=== PATIENT | male | born 1970 | race American Indian/Alaskan Native ===

== ENCOUNTER → 2018-02-07 | Outpatient (CLI) | payer OTHER ==
[~2018-02-07] MED LIST: ABAT250V; ALBU90OI6 INH; AMIL5 PO; Aldactone25 MG PO; Aldactone50 MG PO; B-1100 MG PO; BIOTIN5 MG PO; BUPR150ER PO; CHLO25 PO; CHOL10002; CHOL10002 PO; CLOB.05TC TOP; CLOB.05TO; CLOB.05TO TOP; Cyclobenzaprine5 MG PO; Daily Vitamin1 EAC8 PO; Enulose 2020 G/30 ML PO; FOLI1; FOLI1 PO; GABA100 PO; Generlac10 GM/15 M PO; LACT10SY; LISI5 PO; LORA.5 PO; Lisinopril2.5 MG PO; MAGCHL64ER PO; MAGOXI400 PO; Magnesium Oxid500 MG PO; Multiple Vitam1 EAC1 PO; NYST100TC; PANT40 PO; POTCHL20ER PO; PROP10; RIFA550T2 PO; THIA100; TRAZ50; VENL37.5 PO; VENL37.5ER PO; VITAMIN D32000 UNIT PO
[2018-02-07 16:54] LABS: Microalbumin, Urine Quant. 5.57 mg/L (0.000-20.000)
[2018-02-07 17:27] LABS: Protein, Urine Quantitative 6.6 mg/dL (0.0-11.9)
== END | disposition home or self-care (01) ==
LOC: OLS 11:00
PROVIDERS: Internal Medicine Nephrology
DX: N18.2 Chronic kidney disease, stage 2 (mild) (principal); D63.1 Anemia in chronic kidney disease; N25.81 Secondary hyperparathyroidism of renal origin; E55.9 Vitamin D deficiency, unspecified; E78.00 Pure hypercholesterolemia, unspecified; R76.9 Abnormal immunological finding in serum, unspecified; R94.5 Abnormal results of liver function studies; R94.6 Abnormal results of thyroid function studies; R03.1 Nonspecific low blood-pressure reading; E86.9 Volume depletion, unspecified
CPT/HCPCS: 81050; 82043; 84156

== ENCOUNTER 2018-07-25 14:11 | Emergency (ER) | payer OTHER ==
[~2018-07-25] VITALS: Ht 177.8 cm; Wt 80.0 kg
[2018-07-25] MEDS ORDERED: CHLO25 PO (14:53)
== END 2018-07-25 15:00 | disposition home or self-care (01) ==
LOC: ER 14:11
DX: F10.239 Alcohol dependence with withdrawal, unspecified (principal); I10 Essential (primary) hypertension; F32.9 Major depressive disorder, single episode, unspecified; F17.200 Nicotine dependence, unspecified, uncomplicated; Z79.899 Other long term (current) drug therapy; Z88.0 Allergy status to penicillin; Z88.1 Allergy status to other antibiotic agents
CPT/HCPCS: 99284

== ENCOUNTER 2019-01-01 21:17 | Emergency (ER) | payer OTHER ==
[~2019-01-01] VITALS: Ht 177.8 cm; Wt 84.8 kg
== END 2019-01-01 21:45 | disposition left against medical advice (07) ==
LOC: ER 21:17
DX: Z53.21 Procedure and treatment not carried out due to patient leaving prior to being seen by health care provider (principal)

== ENCOUNTER 2019-01-07 17:21 | Emergency (ER) | payer OTHER ==
[~2019-01-07] VITALS: Ht 177.8 cm; Wt 81.7 kg
[2019-01-07 17:59] LABS: BASOPHILS ABSOLUTE AUTO 0.02 K/mm3 (0.00-0.23); BASOPHILS PERCENT AUTO 0 % (0-2); EOSINOPHILS ABSOLUTE AUTO 0.44 K/mm3 (0.00-0.68); EOSINOPHILS PERCENT AUTO 7 % (0-6); Hematocrit 37.5 % (37.0-53.0); Hemoglobin 12.9 g/dL (13.5-17.5); IMMATURE GRAN ABSOLUTE AUTO 0.01 K/mm3 (0.00-0.10); IMMATURE GRAN PERCENT AUTO 0 % (0-1); LYMPHOCYTES ABSOLUTE AUTO 0.86 K/mm3 (0.84-5.20); LYMPHOCYTES PERCENT AUTO 14 % (21-46); MONOCYTES ABSOLUTE AUTO 0.49 K/mm3 (0.16-1.47); MONOCYTES PERCENT AUTO 8 % (4-13); Mean Corpuscular HGB 33.2 pg (26.0-34.0); Mean Corpuscular HGB Conc 34.4 g/dL (31.5-36.5); Mean Corpuscular Volume 96 fL (80-100); Mean Platelet Volume 10.8 fL (9.1-12.4); NEUTROPHILS ABSOLUTE AUTO 4.49 K/mm3 (1.96-9.15); NEUTROPHILS PERCENT AUTO 71 % (41-73); Platelet Count 156 K/mm3 (150-400); RDW Coefficient Variation 14.5 % (11.7-14.2); RDW Standard Deviation 49.4 fL (35.1-46.3); Red Blood Cell Count 3.89 M/mm3 (4.30-5.90); White Blood Cell Count 6.31 K/mm3 (4.00-11.30)
[2019-01-07 18:14] LABS: Alanine Aminotransfer (ALT/SGP 61 U/L (12-78); Albumin, Blood 2.7 g/dL (3.4-5.0); Albumin/Globulin Ratio 0.7 (0.8-1.8); Alk Phos 120 U/L (50-136); Anion Gap 8 mmol/L (6-16); Aspartate Aminotrans (AST/SGOT 100 U/L (12-37); Bilirubin, Total 2.1 mg/dL (0.1-1.0); Blood Urea Nitrogen 18 mg/dL (8-24); CO2, Blood 25 mmol/L (21-32); Calcium, Blood 7.7 mg/dL (8.5-10.1); Chloride, Blood 108 mmol/L (98-108); Globulin, Blood 3.7 g/dL (2.2-4.0); Glomerular Filtration Rate >60 (60-); Glucose, Blood 170 mg/dL (70-99); Potassium, Blood 3.9 mmol/L (3.5-5.5); Sodium, Blood 141 mmol/L (136-145); Total Protein, Blood 6.4 g/dL (6.4-8.2)
[2019-01-07] MEDS ORDERED: Cleocin HCl300 MG PO (18:48)
== END 2019-01-07 20:26 | disposition home or self-care (01) ==
LOC: ER 17:21
PROVIDERS: Physician Assistant
DX: S81.851A Open bite, right lower leg, initial encounter (principal); L08.9 Local infection of the skin and subcutaneous tissue, unspecified; W54.0XXA Bitten by dog, initial encounter; Z88.0 Allergy status to penicillin; Z88.8 Allergy status to other drugs, medicaments and biological substances; I10 Essential (primary) hypertension; F17.210 Nicotine dependence, cigarettes, uncomplicated
CPT/HCPCS: 36415; 80053; 85025; 87070; 87075; 87076; 87077; 87147; 87185; 87186; 87205; 90471; 90714; 96365; 99283-25

== ENCOUNTER 2019-03-27 15:23 | Emergency (ER) | payer OTHER ==
[~2019-03-27] VITALS: Ht 177.8 cm; Wt 81.7 kg
[~2019-03-27 15:23] MED LIST changes: +Cleocin HCl300 MG PO
[2019-03-27] MEDS ORDERED: INCARCERATION (15:40)
== END 2019-03-27 15:46 ==
LOC: ER 15:23
DX: F10.229 Alcohol dependence with intoxication, unspecified (principal); F10.239 Alcohol dependence with withdrawal, unspecified
CPT/HCPCS: 99283

== ENCOUNTER 2019-03-27 23:54 | Emergency (ER) | payer OTHER ==
[~2019-03-27] VITALS: Ht 175.3 cm; Wt 83.5 kg
[~2019-03-27 23:54] MED LIST changes: +INCARCERATION
== END 2019-03-28 00:08 | disposition home or self-care (01) ==
LOC: ER 23:54
DX: F10.129 Alcohol abuse with intoxication, unspecified (principal); Z88.0 Allergy status to penicillin; Z88.8 Allergy status to other drugs, medicaments and biological substances; I10 Essential (primary) hypertension; F17.210 Nicotine dependence, cigarettes, uncomplicated
CPT/HCPCS: 99283

== ENCOUNTER 2019-04-29 10:17 | Emergency (ER) | payer OTHER ==
[~2019-04-29] VITALS: Ht 175.3 cm; Wt 83.9 kg
== END 2019-04-29 10:27 | disposition home or self-care (01) ==
LOC: ER 10:17
DX: F10.10 Alcohol abuse, uncomplicated (principal); Z88.0 Allergy status to penicillin; Z88.8 Allergy status to other drugs, medicaments and biological substances; I10 Essential (primary) hypertension; F32.9 Major depressive disorder, single episode, unspecified; F17.210 Nicotine dependence, cigarettes, uncomplicated
CPT/HCPCS: 99283

== ENCOUNTER 2019-07-05 06:45 | Emergency (ER) | payer OTHER ==
[~2019-07-05] VITALS: Ht 177.8 cm; Wt 88.5 kg
[2019-07-05] MEDS ORDERED: LISI5 (07:09)
[2019-07-05] MEDS ORDERED: Roxicodone5 MG PO (08:34)
== END 2019-07-05 09:00 | disposition home or self-care (01) ==
LOC: ER 06:45
DX: S20.211A Contusion of right front wall of thorax, initial encounter (principal); V89.9XXA Person injured in unspecified vehicle accident, initial encounter; Z88.0 Allergy status to penicillin; Z88.1 Allergy status to other antibiotic agents; Z79.899 Other long term (current) drug therapy; I10 Essential (primary) hypertension; F32.9 Major depressive disorder, single episode, unspecified; F17.210 Nicotine dependence, cigarettes, uncomplicated
CPT/HCPCS: 71046; 99283-25

== ENCOUNTER 2019-08-06 01:08 | Emergency (ER) | payer OTHER ==
[~2019-08-06] VITALS: Ht 177.8 cm; Wt 86.6 kg
[~2019-08-06 01:08] MED LIST changes: +LISI5; +Roxicodone5 MG PO
[2019-08-06] MEDS ORDERED: GABA300 PO (01:18)
[2019-08-06] MEDS ORDERED: FOLI400 PO (01:19)
[2019-08-06] MEDS ORDERED: B-1100 MG PO (01:19)
[2019-08-06] MEDS ORDERED: MELATONIN5 M1 PO (01:20)
[2019-08-06] MEDS ORDERED: Daily Multiple1 EACH PO (01:20)
[2019-08-06] MEDS ORDERED: LORA1 PO (01:21)
[2019-08-06] MEDS ORDERED: HYDPAM50 PO (01:22)
[2019-08-06] MEDS ORDERED: CLON.1 PO (01:23)
[2019-08-06] MEDS ORDERED: METOPROLOL SUCC25 MG PO (01:23)
[2019-08-06] MEDS ORDERED: PROM25 PO (01:24)
[2019-08-06] MEDS ORDERED: TRAZ50 PO (01:24)
[2019-08-06] MEDS ORDERED: LISINOPRIL (06:00)
== END 2019-08-06 01:44 | disposition left against medical advice (07) ==
LOC: ER 01:08
DX: Z53.21 Procedure and treatment not carried out due to patient leaving prior to being seen by health care provider (principal)

== ENCOUNTER 2019-08-06 05:48 | Inpatient (IN) | payer OTHER ==
[~2019-08-06] VITALS: Ht 175.3 cm; Wt 88.2 kg
[~2019-08-06 05:48] MED LIST changes: +CLON.1 PO; +Daily Multiple1 EACH PO; +FOLI400 PO; +GABA300 PO; +HYDPAM50 PO; +LORA1 PO; +MELATONIN5 M1 PO; +METOPROLOL SUCC25 MG PO; +PROM25 PO; +TRAZ50 PO
[2019-08-06] MEDS ORDERED: LISINOPRIL (06:00)
[2019-08-06 07:48] LABS: BASOPHILS ABSOLUTE AUTO 0.02 K/mm3 (0.00-0.23); BASOPHILS PERCENT AUTO 0 % (0-2); EOSINOPHILS ABSOLUTE AUTO 0.01 K/mm3 (0.00-0.68); EOSINOPHILS PERCENT AUTO 0 % (0-6); Hematocrit 37.7 % (37.0-53.0); Hemoglobin 12.8 g/dL (13.5-17.5); IMMATURE GRAN ABSOLUTE AUTO 0.04 K/mm3 (0.00-0.10); IMMATURE GRAN PERCENT AUTO 0 % (0-1); LYMPHOCYTES ABSOLUTE AUTO 0.19 K/mm3 (0.84-5.20); LYMPHOCYTES PERCENT AUTO 2 % (21-46); MONOCYTES ABSOLUTE AUTO 0.56 K/mm3 (0.16-1.47); MONOCYTES PERCENT AUTO 6 % (4-13); Mean Corpuscular HGB 32.7 pg (26.0-34.0); Mean Corpuscular Volume 96 fL (80-100); Mean Platelet Volume 11.7 fL (9.1-12.4); NEUTROPHILS PERCENT AUTO 91 % (41-73); Platelet Count 67 K/mm3 (150-400); RDW Coefficient Variation 15.8 % (11.7-14.2); RDW Standard Deviation 55.8 fL (35.1-46.3); Red Blood Cell Count 3.92 M/mm3 (4.30-5.90); White Blood Cell Count 9.42 K/mm3 (4.00-11.30)
[2019-08-06 08:01] LABS: Alanine Aminotransfer (ALT/SGP 70 U/L (12-78); Albumin, Blood 3.6 g/dL (3.4-5.0); Albumin/Globulin Ratio 0.8 (0.8-1.8); Alk Phos 196 U/L (50-136); Anion Gap 14 mmol/L (6-16); Aspartate Aminotrans (AST/SGOT 176 U/L (12-37); Blood Urea Nitrogen 24 mg/dL (8-24); CO2, Blood 20 mmol/L (21-32); Calcium, Blood 9.6 mg/dL (8.5-10.1); Chloride, Blood 106 mmol/L (98-108); Creatinine, Blood 1.41 mg/dL (0.60-1.20); Ethanol (Alcohol), Blood, Med <3 mg/dL; Globulin, Blood 4.3 g/dL (2.2-4.0); Glomerular Filtration Rate 56 (60-); Glucose, Blood 86 mg/dL (70-99); Sodium, Blood 140 mmol/L (136-145); Total Protein, Blood 7.9 g/dL (6.4-8.2); Troponin I 0.291 ng/mL (0.000-0.040)
[2019-08-06 08:48] LABS: Creatine Kinase MB 46.1 ng/mL (0.0-3.6)
[2019-08-06 09:09] LABS: Creatine Kinase MB Index 1.2 (0.0-4.0)
[2019-08-06 09:34] LABS: Source, Urine Clean Catch
[2019-08-06 09:43] LABS: Blood, Urine 3+ (Neg); Glucose Qualitative, Urine Neg (Neg); Ketones, Urine 3+ (Neg); Leukocyte Esterase, Urine 1+ (Neg); Nitrite, Urine Neg (Neg); Protein, Urine 3+ (Neg); Specific Gravity, Urine 1.015 (1.003-1.022); Urobilinogen, Urine 2+ (Normal)
[2019-08-06 09:54] LABS: U Amphetamine Screen Not Detected; U Barbituate Screen Not Detected; U Benzodiazapine Screen DETECTED; U Buprenorphine Screen Not Detected; U Cannabinoids Screen Not Detected; U Cocaine Screen Not Detected; U Methadone Screen Not Detected; U Methamphetamine Screen Not Detected; U Opiates Screen Not Detected; U Oxycodone Screen Not Detected; U Phencyclidine Screen Not Detected; U Propoxyphene Screen Not Detected
[2019-08-06 09:57] LABS: Appearance, Urine Cloudy (Clear); Bilirubin, Urine 2+ (Neg); Color, Urine Yellow (P-Yellow)
[2019-08-06 10:02] LABS: Red Blood Cells, Urine 0-2 /hpf (0-2); Squamous Epithelial Cells Few /hpf (Few)
[2019-08-06 10:03] LABS: Bacteria Few /hpf; Hyaline Casts 0-2 /lpf (0-2)
[2019-08-06 10:04] LABS: Granular Casts Rare /lpf (0)
--- NOTE | 2019-08-06 15:05 | NUR ---
UPDATE PT ATTEMPTING TO GET OUT OF BED. CIWA INCREASED. ATTEMPTED TO GIVE ATIVAN IV. IV NOT PATENT AND UNABLE TO PLACE A NEW IV. DR. VÁSQUEZ CALLED. ORDERS FOR 5MG ATIVAN TO BE GIVEN IM. JUAN GUTIERREZ IN ROOM AND ABLE TO PLACE IV. PT GIVEN 4MG IV ATIVAN. PT STILL RESTLESS AND HAVING VISUAL HALLUCINATIONS. WILL CONTINUE TO MONITOR CLOSELY AND TREAT WITHDRAWALS.
--- NOTE | 2019-08-06 15:54 | NUR ---
UPDATE PT CONTINUES TO BE AGITATED. PT THROWING TELEMETRY. PT YELLING AT STAFF AND UNABLE TO BE REDIRECTED. DR. VÁSQUEZ CALLED AND ORDERS FOR TRANSFER. PT TAKEN TO ICU BY BED.
--- NOTE | 2019-08-06 16:08 | NUR ---
PT ARRIVAL: PT TNX'D FROM PCU. PT CURRENTLY YELLING OUT FOR HELP AND FOR STAFF TO CALL THE POLICE. PT RESISTING CARE AND PULLING WIRES OFF. PLACED IN RADHA VEST AND BILATERAL WRIST RESTRAINTS. UNABLE TO REDIRECT PT. PT ORIENTED TO ROOM, HOWEVER, DOES NOT RETAIN INFORMATION. PT ORIENTED TO SELF ONLY AT THIS TIME. PRECEDEX STARTED TO MINIMIZE ETOH DT'S.
[2019-08-06 16:49] LABS: Troponin I 0.288 ng/mL (0.000-0.040)
[2019-08-06 16:57] LABS: Creatine Kinase MB Index 0.7 (0.0-4.0)
--- NOTE | 2019-08-06 18:23 | NUR ---
ASSUMED CARE / SHIFT SUMMARY: REPORT RECEIVED FROM DARIA Maya RN IN PCU. PT TX TO ICU-05 AT APPROX 1515. ON ARRIVAL TO UNIT, PT IS RESISTING CARE. RADHA VEST & BILAT SOFT WRIST RESTRAINTS PLACED SHORTLY AFTER ARRIVAL TO UNIT, BILAT SOFT ANKLE RESTRAINTS PLACED MULTIPLE HOURS LATER AFTER MEDS PER EMAR FAILED TO HELP W/ ETOH W/D SYMPTOMS & PT BECOMING INCREASINGLY MORE AGITATED. ORDERS PLACED ACCORDINGLY. CALL TO DR VÁSQUEZ TO NOTIFY HIM OF THIS, OKAY TO INCREASE PRECEDEX DRIP TO 1.4 MCG/KG/HR & ORDERS FOR PHENOBARBITAL PLACED. PT IS NOW RESTING QUIETLY AFTER MEDS PER EMAR. LS ARE CLEAR T/O, PT ON RA W/ O2 SATS > 92%. MONITOR SHOWS NSR W/ HR 70s. BP STABLE. PT VOIDS USING URINAL, ATTENDS IN PLACE PER PT REQUEST TO WEAR "UNDERWEAR." BT x4, PT DENIES NAUSEA WHEN AWAKE. SKIN OVERALL IN POOR CONDITION, PT APPEARS TO HAVE PSORIASIS W/ NUMEROUS OPEN AREAS TO SKIN SURFACE. SCATTERED BRUISING ALSO NOTED TO BLE. WILL CONTINUE TO MONITOR & REPORT OFF TO ONCOMING RN.
--- NOTE | 2019-08-06 20:52 | NUR ---
ASSUMED CARE OF PT, REPORT RCV'D FROM MATT CABEZAS. PT ASLEEP IN SUPINE POSITION. BILATERAL UPPER/LOWER SOFT RESTRAINTS AND RADHA IN PLACE. BED IN LOW LOCKED POSITION, SIDE RAILS UP AND DOOR/CURTAIN OPEN. PT RESPONDS TO VERBAL STIMULI BY MUMBLING AND QUICKLY FALLS BACK TO SLEEP. PRECEDEX GTT TURNED DOWN FROM 1.4 MCG/KG/HR TO 0.4 MCG/KG/HR INFUSING INTO RAC. BANANA BAG @50 ML/HR AND NS @ 125 ML/HR INFUSING INTO AALIYAH PICC. ABRASIONS AND ECCHYMOSIS SCATTERED T/O BODY, SEE PICTURES IN CHART.
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
[2019-08-07 00:34] LABS: Creatine Kinase MB 26.2 ng/mL (0.0-3.6); Troponin I 0.186 ng/mL (0.000-0.040)
[2019-08-07 00:44] LABS: Creatine Kinase MB Index 0.6 (0.0-4.0)
--- NOTE | 2019-08-07 04:11 | NUR ---
PT AWAKE, MUMBLING AND CURSING. ATTENDS CHANGED D/T INCONTINENT VOID. PT DIAPHORETIC AND SHAKING. PT ALERT TO SELF, LOCATION, SITUATION AND ABLE TO RECALL THAT HE "FELL AND HIT HIS HEAD" BUT QUICKLY BECAME DISORIENTED AND AGITATED. CIWA 39, PT MEDICATED APPROPRIATELY
[2019-08-07 04:14] LABS: BASOPHILS ABSOLUTE AUTO 0.02 K/mm3 (0.00-0.23); BASOPHILS PERCENT AUTO 0 % (0-2); EOSINOPHILS PERCENT AUTO 3 % (0-6); Hemoglobin 11.8 g/dL (13.5-17.5); IMMATURE GRAN ABSOLUTE AUTO 0.03 K/mm3 (0.00-0.10); IMMATURE GRAN PERCENT AUTO 1 % (0-1); LYMPHOCYTES ABSOLUTE AUTO 0.66 K/mm3 (0.84-5.20); LYMPHOCYTES PERCENT AUTO 11 % (21-46); MONOCYTES ABSOLUTE AUTO 0.53 K/mm3 (0.16-1.47); MONOCYTES PERCENT AUTO 9 % (4-13); Mean Corpuscular HGB 33.1 pg (26.0-34.0); Mean Corpuscular HGB Conc 33.7 g/dL (31.5-36.5); Mean Corpuscular Volume 98 fL (80-100); Mean Platelet Volume 11.6 fL (9.1-12.4); NEUTROPHILS ABSOLUTE AUTO 4.69 K/mm3 (1.96-9.15); NEUTROPHILS PERCENT AUTO 77 % (41-73); Platelet Count 73 K/mm3 (150-400); RDW Coefficient Variation 15.5 % (11.7-14.2); RDW Standard Deviation 55.3 fL (35.1-46.3); Red Blood Cell Count 3.57 M/mm3 (4.30-5.90); White Blood Cell Count 6.13 K/mm3 (4.00-11.30)
[2019-08-07 04:33] LABS: Alanine Aminotransfer (ALT/SGP 65 U/L (12-78); Albumin, Blood 2.8 g/dL (3.4-5.0); Albumin/Globulin Ratio 0.8 (0.8-1.8); Alk Phos 156 U/L (50-136); Anion Gap 6 mmol/L (6-16); Aspartate Aminotrans (AST/SGOT 184 U/L (12-37); Blood Urea Nitrogen 21 mg/dL (8-24); Bun/Creatinine Ratio 23.4 (12.0-20.0); CO2, Blood 26 mmol/L (21-32); Chloride, Blood 110 mmol/L (98-108); Globulin, Blood 3.6 g/dL (2.2-4.0); Glomerular Filtration Rate >60 (60-); Glucose, Blood 112 mg/dL (70-99); Magnesium, Blood 1.7 mg/dL (1.6-2.4); Phosphorus, Blood 3.5 mg/dL (2.5-4.9); Potassium, Blood 3.5 mmol/L (3.5-5.5); Sodium, Blood 142 mmol/L (136-145); Total Protein, Blood 6.4 g/dL (6.4-8.2)
--- NOTE | 2019-08-07 05:53 | NUR ---
SHIFT SUMMARY PT REMAINS ON PRECEDEX 0.4 MCG/KG/HR. NO VISIBLE SIGNS (TREMORS, DIAPHORESIS) OF ETOH W/D FOLLOWING 4 MG DOSE OF ATIVAN (SEE PREVIOUS NOTE). VSS T/O SHIFT. SEE PREVIOUS NOTES FROM THIS SHIFT. WILL REPORT TO DAYSHIFT NURSE.
--- NOTE | 2019-08-07 08:00 | NUR ---
ASSUMED CARE / DR ISTRATE: REPORT RECEIVED FROM LIZ Varela RN. ASSUMED CARE OF THIS PT AT APPROX 0700. ON ASSESSMENT, THE PT IS RESTING QUIETLY. BILAT SOFT WRIST/ ANKLE RESTRAINTS & RADHA VEST REMAIN ON AT THIS TIME. RESP E/U, PT ON RA W/ O2 SATS > 92%. MONITOR SHOWS SR W/ HR 60s, BP STABLE. PER REPORT, PT VOIDS USING URINAL WHEN AWAKE, OTHERWISE INCONTINENT W/ ATTENDS IN PLACE. SKIN OVERALL IN POOR CONDITION, MANY ABRASIONS & SCATTERED BRUISING T/O. PROVIDER AT BEDSIDE TO SEE PT. NO NEW CHANGES AT THIS TIME. HE STS TO CALL IF MORE ORDERS BECOME NECESSARY TO MANAGE ETOH W/D. WILL CONTINUE TO MONITOR & UPDATE NEEDED.
[2019-08-07 10:12] LABS: Creatine Kinase MB 19.8 ng/mL (0.0-3.6); Troponin I 0.06 ng/mL (0.000-0.040)
[2019-08-07 10:27] LABS: Creatine Kinase MB Index 0.8 (0.0-4.0)
--- NOTE | 2019-08-07 16:19 | NUR ---
Spiritual Care intial note: Lengthy visit with Eddie's mom at bedside. Eddie slept throughout visit. Mom tells me that pt's father has advanced dementia. She can no longer care for Eddie at home. She spoke at length about pt's alcoholism. He does not beleive he has a problem. Mom believes his drinking has damaged his cognition. He is often unreasonable. He recently purchased a gun. She is sometimes afraid of her son. I provided theraputic listening and gentle drug abuse counselor. Encouraged self-care and utilizing community resources. Eddie does have income from [employer]. Mom responded well to theraputic listening and prayer. Eddie is not lucid enough for conversation today. I will attempt drug abuse counselor with him in coming days.
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
--- NOTE | 2019-08-08 02:00 | NUR ---
RECEIVED HAND OFF FROM MATT HILL USING SBAR. LYING IN LOW FOWLERS WITH EYES CLOSED. NURSING INTRODUCED AND PT REORIENTED TO ROOM, CALL SYSTEM, AND POC, TO MUMBLE ANSWERS TO ALL QUESTIONS. BELIGERANT WHEN NURSING ASKED HIM TO REPEAT HIS ANSWERS. THREATENS TO KICK AND HIT NURSING WHEN SATURATED ATTENDS CHANGED AND REPOSITIONED. REFUSED OFFER FOR FLUIDS AND NUTRITION. DENIES PAIN, DISCOMFORT, OR FURTHER NEEDS AT THIS TIME. SAFETY MEASURES IN PLACE. WILL CONTINUE TO MONITOR.
[2019-08-08 03:55] LABS: BASOPHILS ABSOLUTE AUTO 0.02 K/mm3 (0.00-0.23); BASOPHILS PERCENT AUTO 0 % (0-2); EOSINOPHILS ABSOLUTE AUTO 0.16 K/mm3 (0.00-0.68); EOSINOPHILS PERCENT AUTO 3 % (0-6); Hematocrit 32.2 % (37.0-53.0); IMMATURE GRAN ABSOLUTE AUTO 0.01 K/mm3 (0.00-0.10); IMMATURE GRAN PERCENT AUTO 0 % (0-1); LYMPHOCYTES ABSOLUTE AUTO 0.52 K/mm3 (0.84-5.20); LYMPHOCYTES PERCENT AUTO 10 % (21-46); MONOCYTES ABSOLUTE AUTO 0.55 K/mm3 (0.16-1.47); MONOCYTES PERCENT AUTO 11 % (4-13); Mean Corpuscular HGB 32.7 pg (26.0-34.0); Mean Corpuscular HGB Conc 34.2 g/dL (31.5-36.5); Mean Corpuscular Volume 96 fL (80-100); Mean Platelet Volume 11.3 fL (9.1-12.4); NEUTROPHILS ABSOLUTE AUTO 3.76 K/mm3 (1.96-9.15); NEUTROPHILS PERCENT AUTO 75 % (41-73); Platelet Count 75 K/mm3 (150-400); RDW Coefficient Variation 15.5 % (11.7-14.2); RDW Standard Deviation 54.8 fL (35.1-46.3); Red Blood Cell Count 3.36 M/mm3 (4.30-5.90); White Blood Cell Count 5.02 K/mm3 (4.00-11.30)
[2019-08-08 04:07] LABS: Magnesium, Blood 1.6 mg/dL (1.6-2.4)
[2019-08-08 04:21] LABS: Alanine Aminotransfer (ALT/SGP 69 U/L (12-78); Albumin, Blood 2.3 g/dL (3.4-5.0); Albumin/Globulin Ratio 0.7 (0.8-1.8); Alk Phos 145 U/L (50-136); Anion Gap 8 mmol/L (6-16); Aspartate Aminotrans (AST/SGOT 154 U/L (12-37); Bilirubin, Total 1.8 mg/dL (0.1-1.0); Blood Urea Nitrogen 13 mg/dL (8-24); Bun/Creatinine Ratio 15.5 (12.0-20.0); CO2, Blood 22 mmol/L (21-32); Calcium, Blood 7.3 mg/dL (8.5-10.1); Chloride, Blood 112 mmol/L (98-108); Creatinine, Blood 0.84 mg/dL (0.60-1.20); Globulin, Blood 3.5 g/dL (2.2-4.0); Glomerular Filtration Rate >60 (60-); Glucose, Blood 107 mg/dL (70-99); Potassium, Blood 3.2 mmol/L (3.5-5.5); Sodium, Blood 142 mmol/L (136-145); Total Protein, Blood 5.8 g/dL (6.4-8.2); Troponin I 0.025 ng/mL (0.000-0.040)
[2019-08-08 04:22] LABS: CPK Creatine Kinase 1218 U/L (39-308)
[2019-08-08 04:36] LABS: Creatine Kinase MB 7.7 ng/mL (0.0-3.6); Creatine Kinase MB Index 0.6 (0.0-4.0)
--- NOTE | 2019-08-08 07:04 | NUR ---
PT CALLED OUT, "CUT ME LOOSE!" ASKING TO BE RELEASED FROM HIS RESTRAINTS. NURSING ENTERED ROOM AND SPOKE TO PT. HE WAS ABLE TO ANSWER WHAT THE MONTH, SELF, PRESIDENT, AND SITUATION WERE. STATES THAT HE IS WILLING TO BE COOPERATIVE WITH CARE AND WANTS TO BE ABLE TO AMBULATE AND EVENTUALLY WALK OUT OF THE HOSPITAL. VOICES THAT HE HAS A FEAR THAT HE WILL LOOSE THE ABLITY TO AMBULATE. NURSING REASSURD HIM THAT HE WILL BE ABLE TO WALK OUT IN THE FUTURE WHEN HE HAS RECOVERED. ORAL CARE PERFORMED, PT GIVEN CHOCOLATE MILK AFTER USING THE URINAL. 200ML CONCENTRATED GIANA URINE EMPITED. BILATERAL SOFT WRIST RESTRAINTS REMOVED AND PT ASSITED IN ROM. VOICES APPRECIATION. PT INFORMED THAT SHIFT CHANGE WAS GOING TO OCCUR AND HAND OFF WOULD BE PERFORMED. SAFETY MEASURES IN PLACE. HAND OFF GIVEN TO MATT MARTINEZ USING SBAR.
--- NOTE | 2019-08-08 07:39 | NUR ---
Recieved report from Shanta RN. Patient is lying supine in bed awakens to verbal stimuli and is able to state place , person, year, and situation.. He is on RA and sats 98%.Patient is arumentitive and blames us for his situation r/t having him in restraints. He has 20ga IV RFA , dressing intact and site WNL's and is infusing Precedex at 0.4 mcg/kg/hr. He also has PowerGlide AALIYAH and dressing intact and site WNL's and is infusing NS at 125ml/hr. He uses urinal if you respond quick enough to him calling out. He is in reyes vest and wrist restraints were removed during Noc shift. HR 70 and NSR.
--- NOTE | 2019-08-08 08:00 | NUR ---
Patient arrived via gurney from Er to ICU 8 and transfered self to ICU bed. He wanted food and drinks as soon as he arrived. Bharath from Dialysis was on his way to hook uo. I cave him three types of juices in three cup as he requested and he shortly fell asleep. He has perma Cath right upper chest. Hooked up to monitor and he was hypertensive systolic 190's. He is on Ra and sats upper 90%'s. He looked fluid overloaded to LE's bilaterally and has 2-3 + edema. Call light within reach.
--- NOTE | 2019-08-08 09:00 | NUR ---
Dialysis in room and running patient. Breakfast came and he was sleeping and will awit to see if he is hungry.
--- NOTE | 2019-08-08 10:32 | NUR ---
Patient worked with PT and OT and was up in chair for short period and tolereated well for first time being out of bed. He still cusses when communicating and needs to be re-direct to appropriate speech. Gets frustrated easily. Moved back to bed with one person transfer very weak and shaky, but tolerated well. Oral care done. He is back in bed now and sleeping VSS. Placed precedex on hold.
--- NOTE | 2019-08-08 12:13 | NUR ---
Assisted patient with urinal, about 250ml's of dark samantha urine. He still denies any apetite. VSS, Precedex remains off. [place] loosed and watching patient while sleeping.
--- NOTE | 2019-08-08 13:24 | NUR ---
PATIENT HAD BED CHANGE AND BATH. PLACED IN WHEELCHAIR AND TOOK FOR WALK. HE IS MORE APPROPRIATE, PRECEDX REMAINS OFF. HE IS NOW PCU STAUS AND BACK IN BED RESTING. VSS. SEE JOSE C
--- NOTE | 2019-08-08 13:36 | NUR ---
PATIENT HAS BEEN VERY SHAKY USING URINAL AND SPILLING OR MISSING AND PLAVED SMALL CONDOM CATH AND COLLECTION BAG.
--- NOTE | 2019-08-08 16:04 | NUR ---
PT CAME BACK AND WORKED WITH PATIENT AND DID VERY WELL. RE-APPIED CONDOM CATH AND IS WORKING WELL. HE HAS BEEN VERY APPROPRIATE WITH CALLING AND COMMUNICATIONING HIS NEEDS. VSS
--- NOTE | 2019-08-08 16:28 | NUR ---
Telephone report received from Cristofer Butcher.
--- NOTE | 2019-08-08 17:00 | NUR ---
RECEIVED PT TO PCU 10.
--- NOTE | 2019-08-08 17:01 | NUR ---
Gave report to Dulce GUTIERREZ. He was taken over in wheelchair with all personal belongings. Told Dulce to start NS at 125ml/hr as bag was empty.He went over on RA and sats in the mid to high 90%'s.
--- NOTE | 2019-08-08 17:42 | NUR ---
Received the pt from ICU, in to PCU 10. He was assisted from the wheelchair to the bed to sit down. He is able to use the overhead trapeze to reposition himself in bed. Tremors noted at rest, but pt denies headache, nausea, vomiting, anxiety, visual/auditory hallucinations. No agitation or anxiety noted. At this time, he is sitting up in bed, eating dinner with a good appetite. STates that he does occasionally have pain on the left side of his chest, worse with inspiration. States that it is from a cracked rib from fall which occurred just before his admission.
--- NOTE | 2019-08-08 21:59 | NUR ---
PCU NIGHTSHIFT ASSUMED CARE OF PT APPROX. 1900. PT A&OX4 AND ABLE TO ANSWER ALL QUESTIONS APPROPRIATELY. ASSESSMENT COMPLETED. PT VITAL SIGNS STABLE. TREMORS NOTED ON ALL EXTREMITIES. PT DENIES N/V. SCATTERED BRUISING NOTED T/O EXTREMITIES AND SCAB PRESENT IN A FEW PLACES. SKIN RED AND FLAKEY NOTED ON FACE. PT REPORTS THIS IS CHRONIC. PT ABLE TO HOLD CONVERSATION WELL. SHIFT PROGRESSED PT BEGAN TO REPORTS SEEING THINGS INTERMITTENLTY, TREMORS WORSENED AND PT REPORTED A HEADACHE. MEDICATIONS GIVEN PER EMAR. CONDOM CATHETER REMAINS IN PLACE. BED IN LOW POSITION, CALL LIGHT IN REACH AND PT DENIES ANY NEEDS.
[2019-08-09 04:10] LABS: Hematocrit 32.9 % (37.0-53.0); Hemoglobin 11.3 g/dL (13.5-17.5); Mean Corpuscular HGB Conc 34.3 g/dL (31.5-36.5); Mean Corpuscular Volume 96 fL (80-100); Mean Platelet Volume 10.7 fL (9.1-12.4); Platelet Count 98 K/mm3 (150-400); RDW Coefficient Variation 15.9 % (11.7-14.2); RDW Standard Deviation 55.5 fL (35.1-46.3); Red Blood Cell Count 3.42 M/mm3 (4.30-5.90); White Blood Cell Count 4.69 K/mm3 (4.00-11.30)
[2019-08-09 04:26] LABS: BAND PERCENT MAN 3 % (0-8); BASOPHILS PERCENT MAN 0 % (0-2); EOSINOPHILS ABSOLUTE MAN 0.09 K/mm3 (0.00-0.68); EOSINOPHILS PERCENT MAN 2 % (0-6); LYMPHOCYTES ABSOLUTE MAN 0.46 K/mm3 (0.84-5.20); LYMPHOCYTES PERCENT MAN 10 % (21-46); MONOCYTES ABSOLUTE MAN 0.51 K/mm3 (0.16-1.47); MONOCYTES PERCENT MAN 11 % (4-13); MYELOCYTE ABSOLUTE MAN 0.04 K/mm3 (0.00-0.00); MYELOCYTE PERCENT MAN 1 % (0-0); NEUTROPHILS ABSOLUTE MAN 3.56 K/mm3 (1.96-9.15); SEG NEUTROPHILS PERCENT MAN 73 % (41-73); TOTAL CELLS COUNTED 100
[2019-08-09 04:44] LABS: Alanine Aminotransfer (ALT/SGP 82 U/L (12-78); Albumin, Blood 2.6 g/dL (3.4-5.0); Albumin/Globulin Ratio 0.7 (0.8-1.8); Alk Phos 155 U/L (50-136); Anion Gap 7 mmol/L (6-16); Aspartate Aminotrans (AST/SGOT 213 U/L (12-37); Bilirubin, Total 2.1 mg/dL (0.1-1.0); Blood Urea Nitrogen 10 mg/dL (8-24); Bun/Creatinine Ratio 12.2 (12.0-20.0); CO2, Blood 23 mmol/L (21-32); Calcium, Blood 8.2 mg/dL (8.5-10.1); Chloride, Blood 112 mmol/L (98-108); Creatinine, Blood 0.82 mg/dL (0.60-1.20); Globulin, Blood 3.5 g/dL (2.2-4.0); Glomerular Filtration Rate >60 (60-); Glucose, Blood 81 mg/dL (70-99); Phosphorus, Blood 2.1 mg/dL (2.5-4.9); Potassium, Blood 3.3 mmol/L (3.5-5.5); Sodium, Blood 142 mmol/L (136-145); Total Protein, Blood 6.1 g/dL (6.4-8.2)
--- NOTE | 2019-08-09 06:00 | NUR ---
SHIFT SUMMARY PT PLEASANT AND COOPERATIVE. PT REMAINS A&OX4. ASSESSMENT FINDINGS REMAIN UNCHANGED SINCE START OF SHIFT. T/O SHIFT PT REPROTS THAT GROIN AREA UNCOMFORTABLE. APPLIED CREAM TO SKIN TO HELP SOOTH THIS NEEDED. PT CONDOM CATHETER CAME OFF AND WAS REPLACED. THIS SECOND CONDOM CATHETER ALSO CAME OFF AND PT REPORTS HE WILL ATTEMPT TO USE THE URINAL. PT ABLE TO MAKE USE OF URINAL TO URINATE. ATTENDS REMAINS IN PLACE WELL. TREMORS SLIGHTLY IMPROVED AT TIMES. CONTINUED TO ASSESS CIWA NEEDED AND PROVIDED MEDICATIONS NEEDED. PT IN BED SLEEPING AT THIS TIME. BED IN LOW POSITION, BED ALARM ON, CALL LIGHT IN REACH AND PT DENIES ANY NEEDS. WILL CONTINUE TO MONITOR UNTIL HANDOFF TO DAYSHIFT RN.
--- NOTE | 2019-08-09 10:45 | NUR ---
The pt attempted to get up from the chair to the bed independently. Chair alarm went off, and he was assisted with the IV tubing and into the bed safely. He became mildly agitated at the time, but calmed down quickly with redirection and limit setting. Bed alarm on.
--- NOTE | 2019-08-09 10:50 | NUR ---
Patient is sitting on a chair and alert. Patient is very shakey and slow and confused in his communication. I do not know what his baseline is but he seemed to improve a bit as the conversation continued. Patient shared about his alcoholism and possible steps toward recovery that he is considering. Patient talked about his love for music and the instruments he has. Patient states that he is not inspired by judaism avenues but is inspired by music, yard work and friendships. Therapeutic alliance is building and feel this imporatant because an RN explained to me that because of some family unit complications he will not be going back home. As his discharge is approaching I hope to be able to help him through the difficult news as it comes. I will continue to remain available to patient and family.
[2019-08-09 11:38] LABS: Troponin I 0.025 ng/mL (0.000-0.040)
[2019-08-09 11:51] LABS: Creatine Kinase MB 5.4 ng/mL (0.0-3.6); Creatine Kinase MB Index 0.1 (0.0-4.0)
--- NOTE | 2019-08-09 12:29 | NUR ---
The pt is becoming somewhat argumentative and irritable. Music therapist was here in the room, and the pt asked to play the guitar. Therapist explained that due to infection control, he couldn't let the pt handle the instrument. The pt then told the therapist to just go ahead and get out of here. Stated if I can't play the guitar then you just go on out. Muttered "infection control that's just BS"; The pt is refusing lunch. Making demeaning comments to staff and refusing to speak with palliative care RN now about POLST.
--- NOTE | 2019-08-09 14:47 | NUR ---
Eddie has been somewhat emotionally labile today. He has shown occasional periods of agitation and irritability, but improvement seen with administration of librium.
--- NOTE | 2019-08-09 14:57 | NUR ---
Echocardiogram completed.
--- NOTE | 2019-08-09 15:05 | NUR ---
Pt was instructed on the use of incentive spirometer. he demonstrated the use of the IS several times. Dry cough noted afterwards. Pillow provided for hiim to use to brace his sore left side with during coughing Condom cath placed as the pt is very frequently incontinent of urine all over the floor and on himself. He is exiting the bed/chair without calling in order to urinate and a danger for falling. He has not been remembering to use his call light, despite the fact that he verbalized correctly how to use it.
--- NOTE | 2019-08-09 15:53 | NUR ---
The pt could not remember that he had the condom catheter on, despite reminders just minutes beforehand. He pulled it off in an attempt to urinate in the urinal. He is sitting up in the chair, now refusing to use the incentive spirometer because "it about choked me last time I used it". I explained that it is important for him to use it in order to prevent pneumonia, but he states that he won't get pneumonia.
--- NOTE | 2019-08-09 18:35 | NUR ---
The pt told me that he is thinking of leaving the hospital, on his own. States he will walk out of here. Explored with him his reasons and he tearfully told me that he is frustrated because he can't get out of bed or chair without the alarm going off. I explained that if he would use his call light to have staff with him, then the alarm wouldn't ring, He states that he doesn't need any help. Explained to the pt that he is tremulous, shaky and weak and due to the rib fracture sustained in the recent fall, would be at high risk for injury and is high risk for falls. He does not agree. STates that he is shaky because of the drugs he is getting here at the hospital. I explained that our goal is to keep him safe, and that his risk for falling would possibly result in worse injury than he had when he was admitted. Explained that meds he is getting are not causing shakiness, but are helping the tremors to be lessened. He said that he would give it a shot at staying until tomorrow. I asked if he would like to call anyone, and he said he did not. Encouraged the patient to call for assistance when he wants to get up.
--- NOTE | 2019-08-10 07:20 | NUR ---
SHIFT SUMMARY PT TRANSFERRED TO ROOM APPROX 2014. A/O SBA C URINAL USE FORGETFUL AND CAN'T REMEMBER TO USE CALL LIGHT DESPITE REMINDERS. C/O PAIN IN RIBS AND MEDICATED PER EMAR. HE WAS ABLE TO SLEEP T/O NIGHT.PT BEEN COOPERATIVE CALM PLEASANT EVEN JOKING AROUND. CIWA 3 FOR TREMORS. BED ALARM IN USE.
[2019-08-10 09:17] LABS: BASOPHILS ABSOLUTE AUTO 0.02 K/mm3 (0.00-0.23); BASOPHILS PERCENT AUTO 1 % (0-2); EOSINOPHILS ABSOLUTE AUTO 0.21 K/mm3 (0.00-0.68); EOSINOPHILS PERCENT AUTO 5 % (0-6); Hematocrit 34.4 % (37.0-53.0); Hemoglobin 11.5 g/dL (13.5-17.5); IMMATURE GRAN ABSOLUTE AUTO 0.03 K/mm3 (0.00-0.10); IMMATURE GRAN PERCENT AUTO 1 % (0-1); LYMPHOCYTES ABSOLUTE AUTO 0.54 K/mm3 (0.84-5.20); LYMPHOCYTES PERCENT AUTO 13 % (21-46); MONOCYTES PERCENT AUTO 19 % (4-13); Mean Corpuscular HGB 32.1 pg (26.0-34.0); Mean Corpuscular HGB Conc 33.4 g/dL (31.5-36.5); Mean Corpuscular Volume 96 fL (80-100); Mean Platelet Volume 10.5 fL (9.1-12.4); NEUTROPHILS PERCENT AUTO 63 % (41-73); Platelet Count 121 K/mm3 (150-400); RDW Coefficient Variation 16.2 % (11.7-14.2); RDW Standard Deviation 56.9 fL (35.1-46.3); Red Blood Cell Count 3.58 M/mm3 (4.30-5.90)
[2019-08-10 09:48] LABS: Alanine Aminotransfer (ALT/SGP 88 U/L (12-78); Albumin, Blood 2.6 g/dL (3.4-5.0); Albumin/Globulin Ratio 0.7 (0.8-1.8); Alk Phos 154 U/L (50-136); Anion Gap 9 mmol/L (6-16); Aspartate Aminotrans (AST/SGOT 234 U/L (12-37); Bilirubin, Total 2.2 mg/dL (0.1-1.0); Blood Urea Nitrogen 8 mg/dL (8-24); CO2, Blood 22 mmol/L (21-32); Calcium, Blood 7.7 mg/dL (8.5-10.1); Chloride, Blood 110 mmol/L (98-108); Globulin, Blood 3.6 g/dL (2.2-4.0); Glomerular Filtration Rate >60 (60-); Glucose, Blood 125 mg/dL (70-99); Magnesium, Blood 1.4 mg/dL (1.6-2.4); Phosphorus, Blood 3.3 mg/dL (2.5-4.9); Potassium, Blood 3.5 mmol/L (3.5-5.5); Sodium, Blood 141 mmol/L (136-145); Total Protein, Blood 6.2 g/dL (6.4-8.2)
--- NOTE | 2019-08-10 10:00 | NUR ---
MOTHER IN TO SEE PT. PT MORE QUIET WITH MOTHER IN ROOM. HAD BEEN EXCITED ABOUT BEING UPSTAIRS RATHER THAN DOWNSTAIRS. REPORTED PAIN TO L SIDE DUE TO RIB FX AND TYLENOL GIVEN. INSTRUCTED ON USING A PILLOW TO SPLINT RIB AREA WHEN COUGHING. I.S. WITHIN REACH OF PT ON TABLE. SITTING ON SIDE OF BED TO URINATE. INFORMED OF HEART TEST TO BE DONE AND SHORTAGE OF TRACERS AND THAT TEST WON'T BE STARTED TIL TOMORROW. DOZING WHEN NOT BEING CARED FOR
[2019-08-10 10:35] LABS: Creatine Kinase MB Index 0.1 (0.0-4.0)
--- NOTE | 2019-08-10 17:54 | NUR ---
SHIFT SUMMARY PT HAD BEEN MORE TEARFUL THIS AFTERNOON STATING HE FELLS LIKE HE IS IN [facility] WITH THE BED ALARM GOING OFF WHENEVER HE SITS UP ON SIDE OF BED TO USE URINAL. STATES HE JUST WANTS TO GET OUT OF HERE. STATES HE FEELS SO WEAK AND HES NOT GETTING STRONGER JUST LAYING IN THE BED. HAS WALKED WITH P.T. AND O.T. AND WITH FIRST ASSIST. OFFERED TO WALK WITH HIM AGAIN AND SIT IN HALLWAY WITH STAFF FOR SOCIALIZATION BUT PT WALKED BACK IN TO ROOM AND SAID WHATS THE POINT OF THAT. DID ASK FOR A W/C TO WHEEL HIMSELF UP AND DOWN HALLWAY AND THAT WAS PROCURED AND PT DID MOVE ABOUT AND SAID HE WAS PRETTY TIRED AFTER 3 TRIPS UP AND DOWN HALLWAY. SMILING MORE NOW WELL. CONTINUES WITH TREMORS.
[2019-08-11 05:28] LABS: BASOPHILS ABSOLUTE AUTO 0.03 K/mm3 (0.00-0.23); BASOPHILS PERCENT AUTO 1 % (0-2); EOSINOPHILS ABSOLUTE AUTO 0.24 K/mm3 (0.00-0.68); EOSINOPHILS PERCENT AUTO 5 % (0-6); Hematocrit 33.7 % (37.0-53.0); Hemoglobin 11.3 g/dL (13.5-17.5); IMMATURE GRAN ABSOLUTE AUTO 0.03 K/mm3 (0.00-0.10); IMMATURE GRAN PERCENT AUTO 1 % (0-1); LYMPHOCYTES ABSOLUTE AUTO 0.75 K/mm3 (0.84-5.20); LYMPHOCYTES PERCENT AUTO 15 % (21-46); MONOCYTES ABSOLUTE AUTO 1.28 K/mm3 (0.16-1.47); MONOCYTES PERCENT AUTO 25 % (4-13); Mean Corpuscular HGB 32.8 pg (26.0-34.0); Mean Corpuscular HGB Conc 33.5 g/dL (31.5-36.5); Mean Corpuscular Volume 98 fL (80-100); NEUTROPHILS PERCENT AUTO 54 % (41-73); Platelet Count 128 K/mm3 (150-400); RDW Coefficient Variation 16.4 % (11.7-14.2); RDW Standard Deviation 58.4 fL (35.1-46.3); Red Blood Cell Count 3.45 M/mm3 (4.30-5.90); White Blood Cell Count 5.03 K/mm3 (4.00-11.30)
[2019-08-11 06:00] LABS: Alanine Aminotransfer (ALT/SGP 78 U/L (12-78); Albumin, Blood 2.5 g/dL (3.4-5.0); Albumin/Globulin Ratio 0.7 (0.8-1.8); Alk Phos 141 U/L (50-136); Anion Gap 9 mmol/L (6-16); Aspartate Aminotrans (AST/SGOT 188 U/L (12-37); Bilirubin, Total 2.2 mg/dL (0.1-1.0); Blood Urea Nitrogen 11 mg/dL (8-24); Bun/Creatinine Ratio 14.1 (12.0-20.0); CO2, Blood 23 mmol/L (21-32); Calcium, Blood 7.9 mg/dL (8.5-10.1); Chloride, Blood 111 mmol/L (98-108); Creatinine, Blood 0.78 mg/dL (0.60-1.20); Globulin, Blood 3.5 g/dL (2.2-4.0); Glomerular Filtration Rate >60 (60-); Glucose, Blood 77 mg/dL (70-99); Phosphorus, Blood 3.7 mg/dL (2.5-4.9); Potassium, Blood 3.5 mmol/L (3.5-5.5); Sodium, Blood 143 mmol/L (136-145)
[2019-08-11 06:11] LABS: CPK Creatine Kinase 3316 U/L (39-308)
[2019-08-11 06:28] LABS: Creatine Kinase MB 2.9 ng/mL (0.0-3.6); Creatine Kinase MB Index 0.1 (0.0-4.0)
--- NOTE | 2019-08-11 06:42 | NUR ---
SHIFT SUMMARY PT A/O CIWA SCORE 1 FOR TREMORS. INDEPENDENT WITH URINAL USE. SAID HE DIDN'T REALLY SLEEP ALL NIGHT. C/O PAIN IN RIBS AND MEDICATED PER EMAR C TYLENOL. HE DID DOZE A LITTLE BIT AFTER TYLENOL. NPO AT MIDNIGHT. CALL LIGHT IN REACH.
[2019-08-11] MEDS ORDERED: CLOB.05TO TOP (14:02)
--- NOTE | 2019-08-11 15:14 | NUR ---
SHIFT SUMMARY NO ACUTE CHANGES. PATIENT DENIES PAIN, NAUSEA, AND SHORTNESS OF BREATH. PATIENT WORKED WITH PT AND OT PATIENT UP SBA WITH FWW. PATIENT HAD STRESS TEST TODAY. PATIENT TENTATIVELY DISCHARGING TOMORROW. CALL LIGHT IN REACH.
[2019-08-12 04:06] LABS: HBSAG SCREEN Negative (Negative); HEP B CORE AB, TOT Negative (Negative); HEP C VIRUS AB <0.1 (0.0-0.9)
--- NOTE | 2019-08-12 05:31 | NUR ---
SHIFT SUMMARY: PT IS ALERT AND ORIENTED. PT IS CALM AND COOPERATIVE WITH CARE. PT CALLS APPROPRIATELY. PT IS INDEPENDENT IN THE ROOM. PT REPORTS INTERMITTENT ABD AND BACK PAIN, MEDICATING PER EMAR. PT DENIES NAUSEA, VOMITING, AND SOB. PT SLEPT MUCH OF THE NIGHT WHEN NOT DISTURBED. POSSIBLE DC TODAY. NO ACUTE CHANGES OR COMPLICATIONS THIS SHIFT. BED IN LOW POSITION, CALL LIGHT WITHIN REACH. WILL REPORT TO DAY NURSE.
[2019-08-12 05:33] LABS: BASOPHILS ABSOLUTE AUTO 0.04 K/mm3 (0.00-0.23); BASOPHILS PERCENT AUTO 1 % (0-2); EOSINOPHILS ABSOLUTE AUTO 0.27 K/mm3 (0.00-0.68); EOSINOPHILS PERCENT AUTO 5 % (0-6); Hemoglobin 11.4 g/dL (13.5-17.5); IMMATURE GRAN ABSOLUTE AUTO 0.04 K/mm3 (0.00-0.10); IMMATURE GRAN PERCENT AUTO 1 % (0-1); LYMPHOCYTES ABSOLUTE AUTO 0.79 K/mm3 (0.84-5.20); LYMPHOCYTES PERCENT AUTO 16 % (21-46); MONOCYTES ABSOLUTE AUTO 1.36 K/mm3 (0.16-1.47); MONOCYTES PERCENT AUTO 27 % (4-13); Mean Corpuscular HGB Conc 33.5 g/dL (31.5-36.5); Mean Corpuscular Volume 99 fL (80-100); Mean Platelet Volume 10.5 fL (9.1-12.4); NEUTROPHILS PERCENT AUTO 51 % (41-73); Platelet Count 147 K/mm3 (150-400); RDW Coefficient Variation 16.2 % (11.7-14.2); RDW Standard Deviation 59.2 fL (35.1-46.3); Red Blood Cell Count 3.45 M/mm3 (4.30-5.90)
[2019-08-12 05:57] LABS: Alanine Aminotransfer (ALT/SGP 69 U/L (12-78); Albumin, Blood 2.4 g/dL (3.4-5.0); Albumin/Globulin Ratio 0.7 (0.8-1.8); Alk Phos 135 U/L (50-136); Anion Gap 7 mmol/L (6-16); Aspartate Aminotrans (AST/SGOT 139 U/L (12-37); Bilirubin, Total 2.1 mg/dL (0.1-1.0); Blood Urea Nitrogen 11 mg/dL (8-24); Bun/Creatinine Ratio 13.5 (12.0-20.0); CO2, Blood 25 mmol/L (21-32); Calcium, Blood 7.9 mg/dL (8.5-10.1); Chloride, Blood 109 mmol/L (98-108); Creatinine, Blood 0.82 mg/dL (0.60-1.20); Globulin, Blood 3.4 g/dL (2.2-4.0); Glomerular Filtration Rate >60 (60-); Glucose, Blood 77 mg/dL (70-99); Potassium, Blood 3.8 mmol/L (3.5-5.5); Sodium, Blood 141 mmol/L (136-145); Total Protein, Blood 5.8 g/dL (6.4-8.2)
[2019-08-12 06:16] LABS: CPK Creatine Kinase 1642 U/L (39-308)
[2019-08-12 06:33] LABS: Creatine Kinase MB 1.2 ng/mL (0.0-3.6); Creatine Kinase MB Index 0.1 (0.0-4.0)
[2019-08-12] MEDS ORDERED: ASPI81CH PO (09:52)
[2019-08-12] MEDS ORDERED: FAMO20 PO (09:53)
[2019-08-12] MEDS ORDERED: LEVO750 PO (09:53)
[2019-08-12] MEDS ORDERED: LISI5 PO (09:53)
[2019-08-12] MEDS ORDERED: ATEN25 PO (09:53)
[2019-08-12] MEDS ORDERED: Nicoderm Cq1 EAC1 TOP (09:54)
[2019-08-12] MEDS ORDERED: Phos-Nak Packe1 EACH PO (09:57)
[2019-08-12] MEDS ORDERED: B-1100 MG PO (09:58)
[2019-08-12] MEDS ORDERED: Florastor250 MG PO (09:58)
--- NOTE | 2019-08-12 12:00 | NUR ---
DISCHARGE AT 1145 PATIENT DISCHARGED HOME TODAY WITH MOTHER, SHE STATES SHE'S 84 AND FATHER IS 85. FATHER GETS HOME HEALTH AND THE PATIENT HAS HOME HEALTH ORDERED WELL. PT WORKED WITH [employer] AND WAS STEADY WALKING IN STEELE WITH FWW. POWERGLIDE REMOVED WITHOUT COMPLICATION. DISCHARGE PACKET GIVEN TO PATIENT AND MOTHER, MED CHANGES EXPLAINED, PATIENT AND MOTHER VERBALIZED UNDERSTANDING. PATIENT SIGNED DC FORM.
== END 2019-08-12 11:44 | disposition home health service (06) | DRG 896 ==
LOC: ER 05:48 → PCU 05:49 → ICUE 11:25 → PCU 11:27 → ICUE 15:41 → PCU 08-08 17:11 → MEDS 08-09 19:53 → ENPENDDIS 08-12 09:12 → MEDS 08-12 11:44
PROVIDERS: Emergency Medicine; ADMIT Family Medicine
DX: F10.239 Alcohol dependence with withdrawal, unspecified (principal); G93.41 Metabolic encephalopathy; N17.0 Acute kidney failure with tubular necrosis; M62.82 Rhabdomyolysis; S22.31XA Fracture of one rib, right side, initial encounter for closed fracture; N39.0 Urinary tract infection, site not specified; Z87.891 Personal history of nicotine dependence; K70.30 Alcoholic cirrhosis of liver without ascites; D69.6 Thrombocytopenia, unspecified; Y90.0 Blood alcohol level of less than 20 mg/100 ml; L40.9 Psoriasis, unspecified; B95.1 Streptococcus, group B, as the cause of diseases classified elsewhere; E87.6 Hypokalemia; N18.3 Chronic kidney disease, stage 3 (moderate); I12.9 Hypertensive chronic kidney disease with stage 1 through stage 4 chronic kidney disease, or unspecified chronic kidney disease; E83.39 Other disorders of phosphorus metabolism; T14.8XXA Other injury of unspecified body region, initial encounter; Z79.82 Long term (current) use of aspirin; W19.XXXA Unspecified fall, initial encounter; Y92.9 Unspecified place or not applicable; Z78.1 Physical restraint status
CPT/HCPCS: 36415; 70450; 71046; 78452; 80053; 81001; 82140; 82550; 82553; 82947; 83690; 83735; 84100; 84443; 84484; 85025; 86317; 86704; 86708; 86803; 87081; 87086; 87147; 87340; 93005; 93010; 93017; 93306; 94762; 96361; 96374; 96375; 96376; 97110; 97116; 97162; 97166; 97530; 97535; 99285-25; A9270; A9500; C1751; G0378; G0480; J0360; J0706; J1650; J1956; J2060; J2560; J2765; J2785; J3411; J3475; J3480; J7030; J7042

== ENCOUNTER → 2019-10-09 | Outpatient (CLI) | payer OTHER ==
[~2019-10-09] MED LIST changes: +ASPI81CH PO; +ATEN25 PO; +FAMO20 PO; +Florastor250 MG PO; +LEVO750 PO; +LISINOPRIL; +Nicoderm Cq1 EAC1 TOP; +Phos-Nak Packe1 EACH PO
== END | disposition home or self-care (01) ==
LOC: LAB SHORT 21:20 → LAB 21:20 → LAB FUT 10-09 14:30
DX: N18.2 Chronic kidney disease, stage 2 (mild) (principal); D63.1 Anemia in chronic kidney disease; R19.7 Diarrhea, unspecified
CPT/HCPCS: 87493

== ENCOUNTER → 2021-02-17 | Outpatient (CLI) | payer OTHER ==
[~2021-02-17] MED LIST changes: +ACET325 PO; -ASPI81CH PO; +Aspirin EC81 MG PO; +HYDHCL25 PO; +Klor-Con 1010 MEQ PO; +LISINOPRIL2.5 MG PO
[2021-02-18 10:13] LABS: Stool Occult Bld Immuno 1 Negative (NEGATIVE)
== END | disposition home or self-care (01) ==
LOC: LAB SHORT 12:49 → LAB 12:49
PROVIDERS: Physician Assistant
DX: Z12.11 Encounter for screening for malignant neoplasm of colon (principal)
CPT/HCPCS: G0328

== ENCOUNTER 2022-12-22 10:02 | Day surgery (SDC) | payer OTHER ==
[~2022-12-22] VITALS: Ht 175.3 cm; Wt 81.7 kg
[~2022-12-22 10:02] MED LIST changes: +AMIT25 PO; +MIRT15 PO
--- NOTE | 2022-12-22 11:08 | NUR ---
12/22/22 1108 Vandana Elias HISTORY, CHART, MEDICATIONS AND ALLERGIES REVIEWED BEFORE START OF PROCEDURE. PATIENT CONFIRMS NPO STATUS AND AGREES WITH SCHEDULED PROCEDURE. 3-LEAD EKG REVIEWED WITH PHYSICIAN PRIOR TO START OF PROCEDURE. MONITOR INTACT WITH CONTINUOUS PULSE OXIMETRY,CAPNOGRAPHY, 3-LEAD EKG, INTERMITTENT BP. SUPPLEMENTAL O2 TO BE TITRATED THROUGHOUT PROCEDURE TO MAINTAIN O2 SATURATION ABOVE 90%. PATIENT DETERMINED TO BE ASA APPROPRIATE FOR PROPOFOL SEDATION PRIOR TO START OF PROCEDURE BY DR. VASQUEZ.
--- NOTE | 2022-12-22 12:31 | NUR ---
Patient up to Ambulate independently. Gait steady. Discharge instructions reviewed with patient. Patient verbalizes understanding. Copy given to patient to take home. Patient States Post-Procedure ride home has been arranged. Discharged via wheelchair to private car for ride home.
== END 2022-12-22 12:31 | disposition home or self-care (01) ==
LOC: ORSCMMR 10:02 → ORD 10:30 → ORSCMMR 12:31
PROVIDERS: Internal Medicine Gastroenterology
PROC: 0DJD8ZZ Inspection of Lower Intestinal Tract, Via Natural or Artificial Opening Endoscopic (ICD-10-PCS; principal; 2022-12-22 10:30)
DX: R19.5 Other fecal abnormalities (principal); K64.8 Other hemorrhoids; F17.210 Nicotine dependence, cigarettes, uncomplicated; Z79.899 Other long term (current) drug therapy; K70.30 Alcoholic cirrhosis of liver without ascites
CPT/HCPCS: J2250; J2704; J7120

== ENCOUNTER → 2023-07-28 | Outpatient (CLI) | payer OTHER ==
[2023-07-28 17:06] LABS: CHOL/HDL RATIO 2.7; Cholesterol 170 mg/dL (50-200); HDL Cholesterol 64 mg/dL (>39); LDL/HDL RATIO 1.5; Low Density Lipoprotein Chol 93 mg/dL (0-110); Triglycerides 64 mg/dL (30-160); Very Low Density Lipoprot Chol 12 mg/dL (6-32)
== END | disposition home or self-care (01) ==
LOC: LAB 14:36 → LAB SHORT 14:36
PROVIDERS: Family Medicine
DX: Z13.1 Encounter for screening for diabetes mellitus (principal); Z13.220 Encounter for screening for lipoid disorders
CPT/HCPCS: 80061; 83036

== ENCOUNTER → 2024-09-19 | Outpatient (CLI) | payer OTHER | LOC: LAB 13:00 → LAB SHORT 13:00 | PROVIDERS: Internal Medicine Nephrology | DX: N18.30 Chronic kidney disease, stage 3 unspecified (principal); D63.1 Anemia in chronic kidney disease; E87.6 Hypokalemia; E83.42 Hypomagnesemia | CPT/HCPCS: 81050; 84133 ==

== ENCOUNTER → 2025-10-08 | Outpatient (CLI) | payer OTHER ==
[2025-10-08 13:01] LABS: Microalbumin, Urine Quant. 6.37 mg/L (0.000-20.000); Protein, Urine Quantitative 7.6 mg/dL (0.0-11.9)
== END ==
LOC: LAB SHORT 09:00 → LAB 09:00 → EDSTATUS 10-05 10:55 → LAB FUT 10-05 10:55
PROVIDERS: Internal Medicine Nephrology
DX: N18.2 Chronic kidney disease, stage 2 (mild) (principal); D63.1 Anemia in chronic kidney disease; N25.81 Secondary hyperparathyroidism of renal origin; E55.9 Vitamin D deficiency, unspecified; E78.00 Pure hypercholesterolemia, unspecified; R76.9 Abnormal immunological finding in serum, unspecified; R94.5 Abnormal results of liver function studies; R94.6 Abnormal results of thyroid function studies
CPT/HCPCS: 81050; 82043; 82570; 84156